=== PATIENT | female | born 1935 | race Caucasian/White ===

== ENCOUNTER 2016-09-03 09:16 | Inpatient (IN) | payer MEDICARE ==
[~2016-09-03] VITALS: Ht 177.8 cm; Wt 38.6 kg
[2016-09-03] VITALS (8 sets, daily range): BP systolic 114–125; BP diastolic 55–72
--- NOTE | ~2016-09-03 | PROC NOTE ---
[place], [place] PROCEDURE NOTE [id number] UN[facility] #: [id number] ROOM: 416 DOCTOR: MESHA HERNANDEZ BIRTHDATE: [birth year] DOS: 09/04/2016 MODIFIED BARIUM SWALLOW LOCATION: [facility], room 416, bed 2. DOCTOR: Dr. Jaime. RADIOLOGIST: Dr. Rodríguez. BACKGROUND INFORMATION: The patient is a 80-year-old female who is seen for a modified barium swallow. This test was ordered to rule out aspiration. The patient was admitted with UTI, sepsis and dysphagia. She is also diagnosed with pneumonia. The patient reports that over the past month, she has been having trouble chewing and swallowing due to absence of bottom denture. She also reports poor oral intake and stated that she has been vomiting after meals. She currently receives a regular diet and thin liquids. She reports a 40-pound weight loss over the past year due to her problems. She was receiving oxygen via nasal cannula. For today's assessment, respiratory status was congested. Oral peripheral examination revealed presence of upper denture with adequate fit reported. Lingual, labial, and buccal skills were within normal limits in terms of strength, range of motion, and coordination. The patient was able to volitionally cough and swallow. METHODS AND MATERIALS USED FOR THE EXAM: The patient was positioned in the lateral plane and examination was viewed under fluoroscopy. The patient was presented with a variety of consistencies to assess swallowing skills including applesauce mixed with barium presented in half teaspoon amounts, barium-coated cookie given in bite size pieces and thin liquid barium taken both by cup and straw. ORAL PHASE: Unremarkable. PHARYNGEAL PHASE: The pharyngeal swallow occurred within a timely manner. During the swallow, laryngeal elevation and epiglottic function were within functional limits. Transient penetration occurred with thin liquid taken by cup and straw. This was felt to be due to large sip taken. No aspiration was noted with any consistency. There was no residue in the pharynx post-swallow. ESOPHAGEAL PHASE: This phase of the swallow was not formally assessed during this examination. IMPRESSIONS AND RECOMMENDATIONS: Based upon assessment results, this 80-year-old female presents with swallowing skills that are grossly within functional limits. Transient penetration occurred with thin liquids by cup and straw when taken in larger sips. This can occur in normal individuals. No aspiration occurred with any consistency. Recommend the patient remain on present diet, recommend small sips with liquid. Results and recommendations were shared with the patient and her nurse and they verbalized understanding. No followup therapy is recommended. [place], [place] PROCEDURE NOTE NAME: BECCA SPICER I UNIT #: [id number] ROOM: [facility] DOCTOR: MESHA HERNANDEZ BIRTHDATE: [birth year] Thank you very much for this referral. Should you have any questions regarding this patient, please contact the speech pathologist at [phone]. MESHA HERNANDEZ CM:PROCNOTE:PROCEDURE NOTE [id number] MESHA HERNANDEZ
[2016-09-03 09:54] LABS: HEMATOCRIT 42.4 % (37.0-47.0); HEMOGLOBIN 14.1 g/dl (12.0-16.0); MEAN CELL VOLUME 86.7 fl (81.0-99.0); MEAN CORPUSCULAR HGB 28.8 pg (27.0-31.0); MEAN CORPUSCULAR HGB CONC 33.3 g/dl (33.0-37.0); MEAN PLATELET VOLUME 9.6 fl (9.6-12.3); PLATELET COUNT AUTOMATED 400 10*3/uL (130-400); RED BLOOD COUNT 4.89 10*6/uL (4.10-5.10); RED CELL DISTRI WIDTH 14.3 % (0-14.5); WHITE BLOOD COUNT 5.6 10*3/uL (4.8-10.8)
[2016-09-03 10:16] LABS: LYMPHOCYTE # 0.4 10*3/uL (1.3-4.4); METAMYELOCYTES 3 % (0-0); MONOCYTE # 0.3 10*3/uL (0.1-1.0); NEUTROPHIL # 4.7 10*3/uL (2.3-7.9); NEUTROPHILS 84 % (47-73); TOTAL CELLS COUNTED 100 #CELLS
[2016-09-03 10:17] LABS: PLATELET SUFFICIENCY NORMAL (NORMAL); VACUOLATION OF NEUTROPHILS SLIGHT
[2016-09-03 10:29] LABS: PROTHROMBIN TIME 10.6 SECONDS (9.0-12.4)
[2016-09-03 10:37] LABS: ALBUMIN 2.6 gm/dl (3.1-4.5); ALKALINE PHOSPHATASE 65 U/L (45-117); BUN 14 mg/dl (7-24); CARBON DIOXIDE 25 mmol/L (21-32); CHLORIDE 94 mmol/L (98-107); EST GLOM FILT AFRICAN AMERICAN > 60 ml/min; GLUCOSE 133 mg/dL (65-99); MAGNESIUM 2.1 mg/dL (1.5-2.1); SGOT/AST 14 IU/L (3-35); SGPT/ALT 14 U/L (12-78); SODIUM 131 mmol/L (136-145); TOTAL PROTEIN 6.9 gm/dL (6.4-8.2)
[2016-09-03 10:38] LABS: TROPONIN I < 0.015 ng/ml (<0.5)
[2016-09-03 10:39] LABS: BILIRUBIN 1+ (NEGATIVE); BLOOD 1+ (NEGATIVE); CLARITY CLOUDY (CLEAR); COLOR YELLOW (YELLOW); GLUCOSE NEGATIVE (NEGATIVE); KETONE 1+ (NEGATIVE); LEUKO ESTERASE 1+ (NEGATIVE); NITRITE POSITIVE (NEGATIVE); PH 5.5 (5.0-9.0); PROTEIN 2+ (NEGATIVE); SPECIFIC GRAVITY 1.025 (1.005-1.030)
[2016-09-03 10:48] LABS: BACTERIA 4+; URINE REFLEX COMMENT YES (NO)
[2016-09-03 12:18] LABS: LA>2 REFLEX 2 HR DRAW NOW
[2016-09-03 12:44] LABS: LA>2 RFLX FOLLOW UP AT 2 HRS 2.3 mmol/L (0.4-2.0)
[2016-09-03 14:33] LABS: LA>2 REFLEX 4 HR DRAW NOW
[2016-09-04] VITALS: BP 127/56
[2016-09-04 06:01] LABS: HEMATOCRIT 36.9 % (37.0-47.0); HEMOGLOBIN 12.2 g/dl (12.0-16.0); MEAN CORPUSCULAR HGB 28.8 pg (27.0-31.0); MEAN CORPUSCULAR HGB CONC 33.1 g/dl (33.0-37.0); PLATELET COUNT AUTOMATED 365 10*3/uL (130-400); RED BLOOD COUNT 4.24 10*6/uL (4.10-5.10); RED CELL DISTRI WIDTH 14.2 % (0-14.5); WHITE BLOOD COUNT 4.6 10*3/uL (4.8-10.8)
[2016-09-04 06:15] LABS: HEMOGLOBIN A1c 4.9 % (4.8-5.6)
[2016-09-04 06:30] LABS: PROTHROMBIN TIME 11.1 SECONDS (9.0-12.4)
[2016-09-04 06:36] LABS: ALKALINE PHOSPHATASE 56 U/L (45-117); BILIRUBIN, TOTAL 0.5 mg/dl (0.2-1.0); BUN 9 mg/dl (7-24); CARBON DIOXIDE 25 mmol/L (21-32); CHLORIDE 106 mmol/L (98-107); CHOLESTEROL 93 mg/dL (<200); EST GLOM FILT AFRICAN AMERICAN > 60 ml/min; FREE T4 1.05 ng/dl (0.76-1.46); GLUCOSE 90 mg/dL (65-99); HDL CHOLESTEROL 36 mg/dl (40-60); LDL CHOLESTEROL 43 mg/dL (9-159); MAGNESIUM 2.4 mg/dL (1.5-2.1); PHOSPHOROUS 1.9 mg/dL (2.5-4.9); POTASSIUM 3.5 mmol/L (3.5-5.1); SGOT/AST 9 IU/L (3-35); SGPT/ALT 10 U/L (12-78); SODIUM 139 mmol/L (136-145); TOTAL PROTEIN 5.7 gm/dL (6.4-8.2); TRIGLYCERIDES 72 mg/dl (<150); VLDL CHOLESTEROL 14 mg/dL (6-40)
[2016-09-04 06:42] LABS: FOLIC ACID 8.8 ng/mL (>5.38); VITAMIN D, 25-HYDROXY 11.9 ng/mL (30-100)
[2016-09-04 07:33] LABS: ATYPICAL LYMPHS 1 % (0-0); BURR CELLS MODERATE; LYMPHOCYTE # 0.6 10*3/uL (1.3-4.4); MONOCYTE # 0.1 10*3/uL (0.1-1.0); NEUTROPHIL # 3.9 10*3/uL (2.3-7.9); NEUTROPHILS 85 % (47-73); PLATELET SUFFICIENCY NORMAL (NORMAL); SCHISTOCYTES FEW; TOTAL CELLS COUNTED 100 #CELLS
[2016-09-04 08:00] VITALS: BP 126/60
[2016-09-04 12:00] VITALS: BP 114/52
[2016-09-04 16:00] VITALS: BP 146/74
[2016-09-04 20:00] VITALS: BP 112/52
[2016-09-05] VITALS: BP 94/42
[2016-09-05 04:00] VITALS: BP 116/56
[2016-09-05 06:07] LABS: EOS % 0.5 % (1.0-4.0); HEMATOCRIT 33.4 % (37.0-47.0); HEMOGLOBIN 11.1 g/dl (12.0-16.0); LYMPH # 0.4 10*3/uL (1.3-4.4); LYMPH % 10.5 % (27.0-41.0); MEAN CELL VOLUME 86.8 fl (81.0-99.0); MEAN CORPUSCULAR HGB 28.8 pg (27.0-31.0); MEAN CORPUSCULAR HGB CONC 33.2 g/dl (33.0-37.0); MONO # 0.3 10*3/uL (0.1-1.0); MONO % 8.2 % (3.0-9.0); NEUT # 3.1 10*3/uL (2.3-7.9); NEUT % 80.3 % (47.0-73.0); NUCLEATED RED BLOOD CELL 0.5 % (0.0-0.0); PLATELET COUNT AUTOMATED 342 10*3/uL (130-400); RED BLOOD COUNT 3.85 10*6/uL (4.10-5.10); RED CELL DISTRI WIDTH 14.3 % (0-14.5); WHITE BLOOD COUNT 3.8 10*3/uL (4.8-10.8)
[2016-09-05 06:36] LABS: BUN 8 mg/dl (7-24); CARBON DIOXIDE 25 mmol/L (21-32); CHLORIDE 100 mmol/L (98-107); EST GLOM FILT AFRICAN AMERICAN > 60 ml/min; GLUCOSE 78 mg/dL (65-99); PHOSPHOROUS 1.7 mg/dL (2.5-4.9); POTASSIUM 3.3 mmol/L (3.5-5.1); SODIUM 135 mmol/L (136-145)
[2016-09-05 12:00] VITALS: BP 100/51
[2016-09-05 16:00] VITALS: BP 110/52
[2016-09-05 20:00] VITALS: BP 109/61
[2016-09-06] VITALS: BP 110/52
[2016-09-06 08:00] VITALS: BP 104/52
[2016-09-06 09:57] LABS: HEMATOCRIT 38.9 % (37.0-47.0); MEAN CELL VOLUME 86.8 fl (81.0-99.0); MEAN CORPUSCULAR HGB CONC 33.4 g/dl (33.0-37.0); MEAN PLATELET VOLUME 8.5 fl (9.6-12.3); PLATELET COUNT AUTOMATED 433 10*3/uL (130-400); RED BLOOD COUNT 4.48 10*6/uL (4.10-5.10); RED CELL DISTRI WIDTH 14.2 % (0-14.5); WHITE BLOOD COUNT 3.8 10*3/uL (4.8-10.8)
[2016-09-06 10:13] LABS: BUN 5 mg/dl (7-24); CARBON DIOXIDE 28 mmol/L (21-32); CHLORIDE 103 mmol/L (98-107); EST GLOM FILT AFRICAN AMERICAN > 60 ml/min; GLUCOSE 78 mg/dL (65-99); POTASSIUM 3.6 mmol/L (3.5-5.1); SODIUM 141 mmol/L (136-145)
[2016-09-06 10:30] LABS: BASOPHIL # 0.1 10*3/uL (0-0.1); BASOPHILS 2 % (0-1); LYMPHOCYTE # 0.6 10*3/uL (1.3-4.4); MONOCYTE # 0.5 10*3/uL (0.1-1.0); NEUTROPHIL # 2.6 10*3/uL (2.3-7.9); NEUTROPHILS 69 % (47-73); TOTAL CELLS COUNTED 100 #CELLS
[2016-09-06 10:31] LABS: PLATELET SUFFICIENCY HIGH (NORMAL)
[2016-09-06 12:00] VITALS: BP 125/65
[2016-09-06] MEDS ORDERED: LEVAQUIN750 M1 PO (15:02)
[2016-09-06] MEDS ORDERED: GUAIFENESIN600 MG PO (15:11)
[2016-09-06] MEDS ORDERED: VITAMIN D50000 UNIT PO (15:11)
[2016-09-08 16:09] LABS: ORGANISM ID Not indicated. (.); SPECIMEN SOURCE Urine (.); STREPTOCOCCUS PNEUMONIAE AG Negative (Negative)
== END 2016-09-06 16:07 | disposition home or self-care (01) | DRG 871 ==
LOC: ED 09:16 → EDHOLD 11:01 → 4E 11:01
PROVIDERS: Hospitalist; Internal Medicine; Student in an Organized Health Care Education/Training Program
PROC: BD1BYZZ Fluoroscopy of Mouth/Oropharynx using Other Contrast (ICD-10-PCS; principal; 2016-09-04)
DX: A41.9 Sepsis, unspecified organism (principal); J18.9 Pneumonia, unspecified organism; E43 Unspecified severe protein-calorie malnutrition; E87.2 Acidosis; E87.1 Hypo-osmolality and hyponatremia; N39.0 Urinary tract infection, site not specified; E87.8 Other disorders of electrolyte and fluid balance, not elsewhere classified; R13.10 Dysphagia, unspecified; R65.20 Severe sepsis without septic shock; B96.20 Unspecified Escherichia coli [E. coli] as the cause of diseases classified elsewhere; Z98.890 Other specified postprocedural states; Z87.891 Personal history of nicotine dependence; Z80.8 Family history of malignant neoplasm of other organs or systems; Z68.38 Body mass index [BMI] 38.0-38.9, adult; Z82.3 Family history of stroke

== ENCOUNTER → 2016-12-09 | Outpatient (CLI) | payer MEDICARE ==
[~2016-12-09] MED LIST: GUAIFENESIN600 MG PO; LEVAQUIN750 M1 PO; VITAMIN D50000 UNIT PO
[2016-12-09 11:02] LABS: BILIRUBIN NEGATIVE (NEGATIVE); BLOOD NEGATIVE (NEGATIVE); CLARITY CLOUDY (CLEAR); COLOR YELLOW (YELLOW); GLUCOSE NEGATIVE (NEGATIVE); KETONE NEGATIVE (NEGATIVE); LEUKO ESTERASE 1+ (NEGATIVE); NITRITE NEGATIVE (NEGATIVE); PROTEIN NEGATIVE (NEGATIVE); SPECIFIC GRAVITY 1.015 (1.005-1.030); UROBILINOGEN 0.2 E.U./dl (0.2-1.0)
[2016-12-09 11:04] LABS: BASO # 0.1 10*3/uL (0.0-0.1); BASO % 0.9 % (0.0-1.0); EOS # 0.3 10*3/uL (0.0-0.4); EOS % 4.6 % (1.0-4.0); HEMATOCRIT 44.5 % (37.0-47.0); HEMOGLOBIN 14.3 g/dl (12.0-16.0); LYMPH # 1.8 10*3/uL (1.3-4.4); MEAN CELL VOLUME 90.8 fl (81.0-99.0); MEAN CORPUSCULAR HGB 29.2 pg (27.0-31.0); MEAN CORPUSCULAR HGB CONC 32.1 g/dl (33.0-37.0); MEAN PLATELET VOLUME 8.8 fl (9.6-12.3); MONO # 0.3 10*3/uL (0.1-1.0); MONO % 5.3 % (3.0-9.0); NEUT # 3.4 10*3/uL (2.3-7.9); PLATELET COUNT AUTOMATED 581 10*3/uL (130-400); RED CELL DISTRI WIDTH 13.7 % (0-14.5); WHITE BLOOD COUNT 5.9 10*3/uL (4.8-10.8)
[2016-12-09 11:31] LABS: ALBUMIN 3.5 gm/dl (3.1-4.5); ALKALINE PHOSPHATASE 96 U/L (45-117); BILIRUBIN, DIRECT 0.1 mg/dL (0.0-0.2); BILIRUBIN, TOTAL 0.4 mg/dl (0.2-1.0); BUN 16 mg/dl (7-24); EST GLOM FILT AFRICAN AMERICAN > 60 ml/min; GLUCOSE 79 mg/dL (65-99); PHOSPHOROUS 3.9 mg/dL (2.5-4.9); SGOT/AST 9 IU/L (3-35); SGPT/ALT 15 U/L (12-78); TOTAL PROTEIN 7.7 gm/dL (6.4-8.2)
== END | disposition home or self-care (01) ==
LOC: LAB 10:37
PROVIDERS: Internal Medicine
DX: N39.0 Urinary tract infection, site not specified (principal); B96.20 Unspecified Escherichia coli [E. coli] as the cause of diseases classified elsewhere; E55.9 Vitamin D deficiency, unspecified; D50.9 Iron deficiency anemia, unspecified; E83.39 Other disorders of phosphorus metabolism; E16.2 Hypoglycemia, unspecified; Z79.01 Long term (current) use of anticoagulants

== ENCOUNTER → 2016-12-18 | Outpatient (CLI) | payer MEDICARE | END | disposition home or self-care (01) | LOC: MAMMO 10:55 | DX: Z12.31 Encounter for screening mammogram for malignant neoplasm of breast (principal) ==

== ENCOUNTER → 2017-04-01 | Day surgery (SDC) | payer MEDICARE ==
[~2017-04-01] VITALS: Ht 152.4 cm; Wt 45.4 kg
[~2017-04-01] MED LIST changes: +PEPCID40 MG PO; +REGLAN5 MG PO
--- NOTE | ~2017-04-01 | O ---
[place], [place] OPERATIVE NOTE NAME: BECCA SPICER I UNIT #: [id number] ROOM: DOCTOR: PAULO DOMINGOBRANDY BIRTHDATE: [birth year] DOS: 04/01/2017 GASTROENDOSCOPIC REPORT HISTORY OF PRESENT ILLNESS: An 81-year-old patient who has presented with nausea, vomiting postprandial, and reflux symptomatology. This patient has had esophageal surgery 15 years ago. She tells me apparently it has been done laparoscopically the way the story goes. ALLERGIES: No known medication. FAMILY HISTORY: Noncontributory. PAST SURGICAL HISTORY: As identified above. PAST MEDICAL HISTORY: Tremens, vitamin therapy, vitamin D supplementations, Caltrate. SOCIAL HISTORY: Nonsmoker and social alcohol consumer. PROCEDURE: Today's procedure part of investigation is panendoscopy plus esophageal dilation to size 10. PREMEDICATION: Versed and Diprivan. SCOPE: Olympus forward-viewing gastroscope Q10 video. REPORT: After putting the patient in the left lateral position and after application of lubricant to the scope, the scope was introduced. Thereafter, under direct visualization, I advanced through the length of the esophagus without difficulty. Free flow of reflux gastric contents and gastric secretions throughout the length of esophagus identified. This was meticulously suctioned out to prevent reflux aspiration pneumonia. At the esophagogastric junction, the junction is very tight and stenotic, meticulously dilated to size 10 mm. Scope was introduced into gastric pouch, which contains large volume of gastric secretions and retained food debris. Duodenal bulb, second and third part was assessed and patency assured. Scope was gradually withdrawn. Photographic series was obtained. GI reflection of the scope reveals as if she has had Ethan fundoplication, which has been gradually undone over the years. Back to the esophagus, further secretions were suctioned out. Dilation was redone to ensure patency. The patient extubated, tolerated procedure well. IMPRESSION: Distal esophageal stricture, status post dilation to size 10. Gastric stasis and ruling out gastroparesis clinically with free reflux to the esophagus. PLAN AND DISCUSSION: This is a rather clinical challenge of management on one hand, we have gastroparesis and decreased clearance of the gastric contents. On the other hand, we have reflux with stricture of distal esophagus. If we dilate, the distal esophagus is going to exacerbate the reflux potentially and [place], [place] OPERATIVE NOTE NAME: BECCA SPICER I UNIT #: [id number] ROOM: DOCTOR: PAULO DOMINGO,BRANDY BIRTHDATE: [birth year] therefore, we are going to use Reglan 2.5 mg q.1 hour a.c. dinner only. We are going to try to see if she can tolerate this dose and based on clinical followup in the office, then we will adjust the dose appropriately. Antireflux measures with elevation of the head of the bed 6 inches all time was advised. The patient is going to be kept on Pepcid 40 mg daily. The patient is going to be advised to have softer food and low volume of the food and follow up routinely with you in office, p.r.n. visit with us in GI Clinic. Thank you very much indeed for your kind referral. Sincerely yours, BRANDY BATES MD CM:OPRECORD:OPERATIVE NOTE [id number] BRANDY BATES MD 04/01/17 1326 interface
[2017-04-01 10:07] VITALS: BP 142/73
[2017-04-01 10:49] VITALS: BP 121/71
[2017-04-01 11:04] VITALS: BP 139/78
[2017-04-01 11:19] VITALS: BP 140/76
== END | disposition home or self-care (01) ==
LOC: SDC 03-30 09:30
DX: K22.2 Esophageal obstruction (principal); K31.89 Other diseases of stomach and duodenum; K21.9 Gastro-esophageal reflux disease without esophagitis

== ENCOUNTER → 2017-06-10 | Outpatient (CLI) | payer MEDICARE ==
[2017-06-10 12:56] LABS: BASO # 0.1 10*3/uL (0.0-0.1); BASO % 1.1 % (0.0-1.0); EOS # 0.3 10*3/uL (0.0-0.4); EOS % 3.9 % (1.0-4.0); HEMATOCRIT 45.3 % (37.0-47.0); HEMOGLOBIN 14.8 g/dl (12.0-16.0); LYMPH # 1.8 10*3/uL (1.3-4.4); LYMPH % 27.9 % (27.0-41.0); MEAN CORPUSCULAR HGB 29.1 pg (27.0-31.0); MEAN CORPUSCULAR HGB CONC 32.7 g/dl (33.0-37.0); MEAN PLATELET VOLUME 8.9 fl (9.6-12.3); MONO # 0.3 10*3/uL (0.1-1.0); MONO % 4.8 % (3.0-9.0); PLATELET COUNT AUTOMATED 540 10*3/uL (130-400); RED BLOOD COUNT 5.09 10*6/uL (4.10-5.10); RED CELL DISTRI WIDTH 13.9 % (0-14.5); WHITE BLOOD COUNT 6.4 10*3/uL (4.8-10.8)
[2017-06-10 13:27] LABS: ALBUMIN 3.6 gm/dl (3.1-4.5); ALKALINE PHOSPHATASE 108 U/L (45-117); BILIRUBIN, DIRECT 0.2 mg/dL (0.0-0.2); BUN 13 mg/dl (7-24); CHOLESTEROL 211 mg/dL (<200); CREATININE 0.81 mg/dL (0.55-1.02); HDL CHOLESTEROL 67 mg/dl (40-60); LDL CHOLESTEROL 129 mg/dL (9-159); SGOT/AST 10 IU/L (3-35); SGPT/ALT 19 U/L (12-78); TOTAL PROTEIN 7.8 gm/dL (6.4-8.2); TRIGLYCERIDES 73 mg/dl (<150); VLDL CHOLESTEROL 15 mg/dL (6-40)
== END | disposition home or self-care (01) ==
LOC: LAB 12:13
PROVIDERS: Internal Medicine
DX: E55.9 Vitamin D deficiency, unspecified (principal); E78.4 Other hyperlipidemia; D50.9 Iron deficiency anemia, unspecified; E58 Dietary calcium deficiency; Z79.1 Long term (current) use of non-steroidal anti-inflammatories (NSAID)